=== PATIENT | male | born 1960 | race Caucasian/White ===

== ENCOUNTER 2017-06-01 03:45 | Emergency (ER) | payer OTHER ==
[~2017-06-01] VITALS: Ht 185.4 cm; Wt 111.3 kg
[~2017-06-01 03:45] MED LIST: ACET500T71 PO; ALPR-475 PO; ASPI-515 PO; ASPI-650 PO; CELE200C PO; CYCL-259 PO; DAPA1TAB3 PO; DIAZ5TAB PO; DOCU-131 PO; HYDR-3307 PO; OMEP-110 PO; ONDA4TAB10 PO; OXYC10TA47 PO; PIOG15TA4 PO; ROSU5TAB PO; SITA1TBM7 PO; TRAM50TA2 PO; TRULICITY SC
[2017-06-01] MEDS ORDERED: KETOROLAC 30 MG/1 ML ONE (04:50)
[2017-06-01] MEDS ORDERED: CEFTRIAXONE PMX 1GM/50ML 50 ML ONE (04:50)
[2017-06-01] MEDS ORDERED: ONDANSETRON 2MG/ML, 2ML ONE (04:50)
[2017-06-01] MEDS ORDERED: KETOROLAC 30 MG/1 ML IVPush ONE (05:00)
[2017-06-01] MEDS ORDERED: SODIUM CHLORIDE FLUSH 10ML SYR IVF ONE (05:00)
[2017-06-01] MEDS ORDERED: SODIUM CHLORIDE 0.9% 1,000ML IVBOLUS ONE ×2 (05:00→06:30)
[2017-06-01] MEDS ORDERED: CEFTRIAXONE PMX 1GM/50ML 50 ML IV ONE (05:00)
[2017-06-01] MEDS ORDERED: ONDANSETRON 2MG/ML, 2ML IVPush ONE (05:00)
[2017-06-01 05:22] LABS: HEMATOCRIT 46.6 % (39.2-51.8); WHITE BLOOD COUNT 19.2 x10^3/uL (3.4-10)
[2017-06-01 05:28] LABS: ASPARTATE AMINO TRANSFERASE 15 U/L (15-37); BLOOD UREA NITROGEN 16 mg/dL (7-18)
[2017-06-01] MEDS ORDERED: HYDROcodone/APAP 5/325 TABLET ONE (05:50)
[2017-06-01] MEDS ORDERED: TAMSULOSIN 0.4 MG CAP.ER.24H ONE (05:51)
[2017-06-01 05:59] LABS: DIFF TOTAL CELLS COUNTED 100 CELL DIFF
[2017-06-01] MEDS ORDERED: TAMSULOSIN 0.4 MG CAP.ER.24H PO ONE (06:00)
[2017-06-01] MEDS ORDERED: HYDROcodone/APAP 5/325 TABLET PO ONE (06:00)
[2017-06-01 06:04] LABS: VERIFY COUNTS? YES
[2017-06-01] MEDS ORDERED: DOXYCYCLINE 100MG TABLET PO ONE (06:30)
[2017-06-01 07:02] VITALS: BP 113/58
== END 2017-06-01 07:05 | disposition home or self-care (01) ==
LOC: ED 05:24
DX: N41.0 Acute prostatitis (principal); R31.9 Hematuria, unspecified; E11.9 Type 2 diabetes mellitus without complications
CPT/HCPCS: 36415; 74176; 80053; 81001; 85025; 87077; 87086; 96365; 96375; 99285; J0696; J1885; J2405; J7030; 87186

== ENCOUNTER 2018-05-12 21:17 | Emergency (ER) | payer OTHER ==
[~2018-05-12] VITALS: Ht 185.4 cm; Wt 116.0 kg
[2018-05-12] MEDS ORDERED: CLINDAMYCIN 300 MG CAPSULE PO ONE (22:30)
[2018-05-12] MEDS ORDERED: CLINDAMYCIN 300 MG CAPSULE ONE (22:44)
[2018-05-13 00:13] VITALS: BP 134/77
== END 2018-05-13 00:15 | disposition home or self-care (01) ==
LOC: ED 22:54
DX: L03.115 Cellulitis of right lower limb (principal); M25.571 Pain in right ankle and joints of right foot; M79.662 Pain in left lower leg; E11.40 Type 2 diabetes mellitus with diabetic neuropathy, unspecified; Z88.1 Allergy status to other antibiotic agents
CPT/HCPCS: 99284

== ENCOUNTER 2018-11-16 03:22 | Emergency (ER) | payer OTHER ==
[~2018-11-16] VITALS: Ht 185.4 cm; Wt 112.9 kg
[2018-11-16 03:27] VITALS: BP 155/76
[2018-11-16] MEDS ORDERED: ASPI-496 PO (03:36)
[2018-11-16] MEDS ORDERED: GABA300C10 PO (03:36)
--- NOTE | 2018-11-16 03:37 | NUR ---
PT. C/O LEFT SHOULDER PAIN STARTING AT WORK YESTERDAY. PT. DESCRIBES PAIN SHARP AND BURNING STARTING IN LEFT NECK AND RADIATING DOWN THROUGH LEFT SHOULDER. PT. REPORTS OPEN SHINGLES BLISTERS 2 WEEKS AGO. PT. DENIES ANY INJURY TO NECK/SHOULDER.
[2018-11-16] MEDS ORDERED: KETOROLAC 30 MG/1 ML ONE (03:50)
[2018-11-16] MEDS ORDERED: METHOCARBAMOL 750 MG TABLET ONE (03:50)
--- NOTE | 2018-11-16 03:59 | NUR ---
erp at bedside pt stated pt's symptoms given all meds per md order waiting for symptoms better
[2018-11-16] MEDS ORDERED: METHOCARBAMOL 750 MG TABLET PO ONE (04:00)
[2018-11-16] MEDS ORDERED: KETOROLAC 30 MG/1 ML IM ONE (04:00)
--- NOTE | 2018-11-16 04:57 | NUR ---
given dc instruction with prescription pt up ambulated to check out vss stable
== END 2018-11-16 04:59 | disposition home or self-care (01) ==
LOC: ED 04:40
DX: M62.830 Muscle spasm of back (principal); M62.838 Other muscle spasm; Z90.89 Acquired absence of other organs
CPT/HCPCS: 93005; 96372; 99283; J1885

== ENCOUNTER 2019-09-18 20:01 | Emergency (ER) | payer OTHER ==
[~2019-09-18] VITALS: Ht 185.4 cm; Wt 113.9 kg
[~2019-09-18 20:01] MED LIST changes: +ACET500T64 PO; -ACET500T71 PO; -ALPR-475 PO; +ALPR0.5T7 PO; +ASPI-496 PO; +GABA300C10 PO; -HYDR-3307 PO; +HYDR-36 PO
[2019-09-18 20:08] VITALS: BP 159/90
[2019-09-18 20:29] LABS: BASOPHILS # (AUTO) 0.05 x10^3/uL (0-0.1); BASOPHILS % (AUTO) 1 % (0-1); EOSINOPHILS % (AUTO) 1 % (1-7); LYMPHOCYTES # (AUTO) 2.35 x10^3/uL (1-3.4); LYMPHOCYTES % (AUTO) 27 % (22-44); MD NO; MEAN CORPUSCULAR HEMOGLOBIN 29.8 pg (27.5-34.5); MEAN CORPUSCULAR HGB CONC 33.1 g/dL (33.2-36.2); MEAN CORPUSCULAR VOLUME 89.9 fL (81-97); MEAN PLATELET VOLUME 8.2 fL (7.4-10.4); MONOCYTES # (AUTO) 0.91 x10^3/uL (0.2-0.8); MONOCYTES % (AUTO) 11 % (2-9); NEUTROPHILS # (AUTO) 5.18 x10^3/uL (1.8-6.8); NEUTROPHILS % (AUTO) 60 % (42-75); PLATELET COUNT 275 x10^3/uL (130-400); RED BLOOD COUNT 5.34 x10^6/uL (4.38-5.82); RED CELL DISTRIBUTION WIDTH 13.3 % (9.4-14.8)
[2019-09-18 20:40] LABS: ALANINE AMINOTRANSFERASE 33 U/L (12-78); ALBUMIN 3.8 g/dL (3.4-5.0); ANION GAP 5 mmol/L (5-15); CALCIUM 10.3 mg/dL (8.5-10.1); CHLORIDE 104 mmol/L (98-107); CREATININE 1.19 mg/dL (0.7-1.3)
[2019-09-18 20:42] LABS: ALKALINE PHOSPHATASE 84 U/L (45-117); BILIRUBIN,TOTAL 0.5 mg/dL (0.2-1.0); TOTAL PROTEIN 7.5 g/dL (6.4-8.2)
[2019-09-18] MEDS ORDERED: CEFTRIAXONE 1,000 MG IM ONE (21:00)
[2019-09-18] MEDS ORDERED: CEFTRIAXONE 1,000 MG ONE (21:21)
[2019-09-18] MEDS ORDERED: LIDOCAINE-MPF 1%, 2ML ONE ×2 (21:21)
--- NOTE | 2019-09-18 21:33 | NUR ---
MEDICATED PER EMAR WOUNDS REDRESSED
== END 2019-09-18 21:59 | disposition home or self-care (01) ==
LOC: ED 21:45
DX: L03.032 Cellulitis of left toe (principal); E11.40 Type 2 diabetes mellitus with diabetic neuropathy, unspecified
CPT/HCPCS: 36415; 73630; 80053; 85025; 96372; 99284; J0696